=== PATIENT | male | born 1990 | race African-American/Black ===

== ENCOUNTER 2019-10-22 15:43 | Emergency (ER) | payer OTHER, SELFPAY ==
[2019-10-22 15:47] VITALS: BP 163/98; PULSE 80; RESP 18; TEMP 36.8; O2SAT 99
--- NOTE | 2019-10-22 16:37 | ED_ITS ---
HPI - General Adult General Chief complaint: Nausea/Vomiting/Diarrhea <Boyd Field PA-C - Last Filed: 10/22/19 18:31> Stated complaint: vomiting <JOAQUIN Griffin Last Filed: 10/22/19 18:31> Time Seen by Provider: 10/22/19 15:44 <Boyd Field PA-C - Last Filed: 10/22/19 18:31> Source: patient <JOAQUIN Griffin Last Filed: 10/22/19 18:31> Mode of arrival: ambulatory <JOAQUIN Griffin Last Filed: 10/22/19 18:31> Limitations: no limitations <Boyd Field PA-C - Last Filed: 10/22/19 18:31> History of Present Illness HPI narrative: pt is a 29 yo male with vomiting this morning. denies any pain or diarrhea. believes he may have had food poisoning, on arrival in no distress denies pain. <JOAQUIN Griffin Last Filed: 10/22/19 18:31> Related Data Allergies/adverse reactions: Allergies Allergy/AdvReac Type Severity Reaction Status Date / Time No Known Allergies Allergy Verified 10/22/19 15:52 <JOAQUIN Griffin Last Filed: 10/22/19 18:31> Review of Systems Review of Systems: All systems reviewed & are unremarkable except as noted in HPI and below <JOAQUIN Griffin Last Filed: 10/22/19 18:31> [facility] Social History Social History: Social History (Updated 10/22/19 @ 17:27 by Boyd Field PA-C) Smoking status: Current every day smoker <JOAQUIN Griffin Last Filed: 10/22/19 18:31> Exam Const: General: no acute distress and alert <JOAQUIN Griffin Last Filed: 10/22/19 18:31> Orientation/consciousness: patient oriented x3 <JOAQUIN Griffin ast Filed: 10/22/19 18:31> HENMT: Head: normal to inspection <JOAQUIN Griffin Last Filed: 10/22/19 18:31> Eyes: Conjunctivae: conjunctivae normal <JOAQUIN Griffin Last Filed: 10/22/19 18:31> Pupils: Equal, round and reactive pupils present <JOAQUIN Griffin ast Filed: 10/22/19 18:31> Resp: Effort & Inspection: normal respiratory effort <JOAQUIN Griffin Last Filed: 10/22/19 18:31> Auscultation: clear to auscultation bilaterally <JOAQUIN Griffin Last Filed: 10/22/19 18:31> Cardio: Rate: regular rate <JOAQUIN Griffin Last Filed: 10/22/19 18:31> Rhythm: regular rhythm <MAHSA Griffin Gerda Last Filed: 10/22/19 18:31> GI: GI Palp: Yes Soft to palpation <JOAQUIN Griffin Last Filed: 10/22/19 18:31> Other: non tender <JOAQUIN Griffin Last Filed: 10/22/19 18:31> Back/Spine/Pelvis: Back: no CVA tenderness <JOAQUIN Griffin Last Filed: 10/22/19 18:31> Skin: General skin exam: normal color <MAHSA GriffinJhonathan Gerda Last Filed: 10/22/19 18:31> Rashes: no rashes <JOAQUIN Griffin Last Filed: 10/22/19 18:31> Neuro: General: patient oriented x3, moves all extremities, no focal motor deficits and CN's II-XI intact bilaterally <JOAQUIN Griffin Last Filed: 10/22/19 18:31> Extrem: General: normal to inspection <JOAQUIN Griffin Last Filed: 10/22/19 18:31> Psych: Appearance: grossly normal <JOAQUIN Griffin Last Filed: 10/22/19 18:31> Mental Status: mental status grossly normal <JOAQUIN Griffin Last Filed: 10/22/19 18:31> Thought content: Yes Normal thought content present <JOAQUIN Griffin Last Filed: 10/22/19 18:31> Course Course Emergency Course: pt in the room in no distress beni
--- NOTE | 2019-10-22 16:37 | ED.GENADULT ---
HPI - General Adult General Chief complaint: Nausea/Vomiting/Diarrhea <Boyd Field PA-C - Last Filed: 10/22/19 18:31> Stated complaint: vomiting <JOAQUIN Griffin Last Filed: 10/22/19 18:31> Time Seen by Provider: 10/22/19 15:44 <Boyd Field PA-C - Last Filed: 10/22/19 18:31> Source: patient <JOAQUIN Griffin Last Filed: 10/22/19 18:31> Mode of arrival: ambulatory <Boyd iFeld PA-C - Last Filed: 10/22/19 18:31> Limitations: no limitations <Boyd Field PA-C - Last Filed: 10/22/19 18:31> History of Present Illness HPI narrative: pt is a 29 yo male with vomiting this morning. denies any pain or diarrhea. believes he may have had food poisoning, on arrival in no distress denies pain. <JOAQIUN Griffin Last Filed: 10/22/19 18:31> Related Data Allergies/adverse reactions: Allergies Allergy/AdvReac Type Severity Reaction Status Date / Time No Known Allergies Allergy Verified 10/22/19 15:52 <Boyd Field PA-C - Last Filed: 10/22/19 18:31> Review of Systems Review of Systems: All systems reviewed & are unremarkable except as noted in HPI and below <Boyd Field PA-C - Last Filed: 10/22/19 18:31> [facility] Social History Social History: Social History (Updated 10/22/19 @ 17:27 by Boyd Field PA-C) Smoking status: Current every day smoker <Boyd Field PA-C - Last Filed: 10/22/19 18:31> Exam Const: General: no acute distress and alert <JOAQUIN Griffin Last Filed: 10/22/19 18:31> Orientation/consciousness: patient oriented x3 <JOAQUIN Griffin Last Filed: 10/22/19 18:31> HENMT: Head: normal to inspection <JOAQUIN Griffin Last Filed: 10/22/19 18:31> Eyes: Conjunctivae: conjunctivae normal <JOAQUIN Griffin Last Filed: 10/22/19 18:31> Pupils: Equal, round and reactive pupils present <Boyd FieldMAHSAJhonathan Lorenz Last Filed: 10/22/19 18:31> Resp: Effort & Inspection: normal respiratory effort <Boyd FieldMAHSAJhonathan Lorenz Last Filed: 10/22/19 18:31> Auscultation: clear to auscultation bilaterally <Boyd FieldSHANEGerda Gerda Last Filed: 10/22/19 18:31> Cardio: Rate: regular rate <Boyd FieldSHANELora Lorenz Last Filed: 10/22/19 18:31> Rhythm: regular rhythm <Boyd FieldSHANEGerda Gerda Last Filed: 10/22/19 18:31> GI: GI Palp: Yes Soft to palpation <Boyd Nguyễn EmirMAHSA Gerda Last Filed: 10/22/19 18:31> Other: non tender <Boyd Gopi FieldSHANEGerda Gerda Last Filed: 10/22/19 18:31> Back/Spine/Pelvis: Back: no CVA tenderness <Boyd Gopi FieldSHANEGerda Gerda Last Filed: 10/22/19 18:31> Skin: General skin exam: normal color <Boyd FieldSHANEGerda Gerda Last Filed: 10/22/19 18:31> Rashes: no rashes <Boyd Nguyễn EmirSHANEGerda Gerda Last Filed: 10/22/19 18:31> Neuro: General: patient oriented x3, moves all extremities, no focal motor deficits and CN's II-XI intact bilaterally <MAHSA Griffin Gerda Last Filed: 10/22/19 18:31> Extrem: General: normal to inspection <Boyd Nguyễn EmirMAHSAJhonathan Lorenz Last Filed: 10/22/19 18:31> Psych: Appearance: grossly normal <MAHSA GriffinJhonathan Lorenz Last Filed: 10/22/19 18:31> Mental Status: mental status grossly normal <MAHSA GriffinJhonathan Lorenz Last Filed: 10/22/19 18:31> Thought content: Yes Normal thought content present <MAHSA GriffinJhonathan Lorenz Last Filed: 10/22/19 18:31> Course Course Emergency Course: pt in the room in no distress aware of case findings and treatment plan, afebrile non toxic in no distress. felt appropriate for outpatient reevaluation provided with reasons to return. <Boyd Field PA-C - Last Filed: 10/22/19 18:31> Vital Signs Vital signs: Vital Signs Temperature 98.2 F 10/22/19 15:47 Pulse Rate 80 10/22/19 15:47 Respiratory Rate 18 10/22/19 15:47 Blood Pressure 163/98 H 10/22/19 15:47 Pulse Oximetry 99 10/22/19 15:47 Temperature 98.2 F 10/22/19 15:47 Pulse Rate 73 10/22/19 18:36
[2019-10-22] MEDS: SODIUM CHLORIDE 0.9% IV 1,000 ML 999 ML IV CONT (16:40)
[2019-10-22] MEDS: ONDANSETRON INJ 4 MG/2 ML VIAL IV PUSH (16:42)
[2019-10-22 16:47] VITALS: BP 143/68; PULSE 89; RESP 19; O2SAT 99
[2019-10-22 17:04] VITALS: BP 144/90; PULSE 84
[2019-10-22 17:07] VITALS: BP 149/108; PULSE 78
[2019-10-22 17:09] VITALS: BP 152/102; PULSE 78
[2019-10-22 17:10] LABS: Add Urine Microscopic? YES; Appearance Urine Clear (Clear); Bacteria Urine Trace /hpf; Bilirubin Urine Negative (Negative); Blood Urine 2+ (Negative); Color Urine Yellow (Yellow); Glucose Urine UA Negative (Negative); Ketones Urine Negative (Negative); Leukocyte Esterase Ur Trace LEU/UL (Negative); Mucus Urine Few /lpf; Nitrate Urine Negative (Negative); Protein Urine 2+ mg/dL (Negative); RBC Urine 51-75 /hpf (0-2); Specific Grav Ur 1.027 (1.001-1.035); Squamous Epithelial Cell Urine Rare /hpf (Few)
[2019-10-22 17:21] LABS: Alanine Aminotransferase 48 U/L (4-50); Albumin Level 4.9 g/dL (3.5-5.1); Alkaline Phosphatase 73 U/L (38-126); Aspartate Amino Transferase 69 U/L (17-59); Bilirubin,Total 0.8 mg/dL (0.2-1.3); Blood Urea Nitrogen 8 mg/dL (9-20); Calcium 9.5 mg/dL (8.4-10.2); Carbon Dioxide 25 mmol/L (22-30); Chloride 100 mmol/L (98-107); Estimated CRCL calculation 104 ml/min; Estimated Glomerular Filt Rate > 60; Glucose 106 mg/dL (75-110); Lipase 38 U/L (23-300); Potassium 3.2 mmol/L (3.4-5.0); Sodium 137 mmol/L (137-145)
[2019-10-22 17:36] LABS: Basophils Percent Auto 0.4 % (0.2-1.2); Eosinophils Absolute Auto 0.1 K/mm3 (0-0.3); Eosinophils Percent Auto 0.7 % (0-4.4); Hematocrit 42.9 % (42.0-52.0); Hemoglobin 14.4 g/dL (14.0-18.0); Immature Granulocyte Absolute 0.04 K/mm3 (0.00-0.031); Immature Granulocyte Percent A 0.4 % (0-0.5); Lymphocytes Absolute Auto 1.96 K/mm3 (0.9-3.2); Lymphocytes Percent Auto 18.5 % (18.3-44.2); Mean Corpuscular HGB Conc 33.6 g/dl (32-36); Mean Corpuscular Volume 95.3 fl (80-100); Mean Platelet Volume 9.8 fl (7.4-10.4); Monocytes Absolute Auto 0.9 K/mm3 (0.1-0.6); Monocytes Percent Auto 8.7 % (2.6-8.5); Neutrophils Absolute Auto 7.6 K/mm3 (1.3-6.7); Neutrophils Percent Auto 71.3 % (45.5-73.1); Platelet Count Result 197 k/mm3 (150-375); Red Cell Distribution Width 13.3 % (11.5-14.5); White Blood Count 10.6 K/mm3 (4.5-10.0)
[2019-10-22 18:36] VITALS: BP 148/86; PULSE 73; RESP 14; O2SAT 100
== END 2019-10-22 18:38 | disposition home or self-care (01) ==
PROVIDERS: Emergency Provider Emergency Medicine
DX: R10.9 Unspecified abdominal pain (principal); F17.200 Nicotine dependence, unspecified, uncomplicated
CPT/HCPCS: 36415; 80053; 81001; 83690; 85025; 96361; 96374; 99284; J2405; J7030